=== PATIENT | female | born 1980 | race Caucasian/White ===

== ENCOUNTER 2024-03-01 06:16 | Day surgery (SDC) | payer BC, SELFPAY ==
[2024-03-01] MEDS: LACTATED RINGERS 1000 ML 1,000 ML 100 ML IV (06:20)
[2024-03-01 06:32] VITALS: BMI 36.8
[2024-03-01 06:39] VITALS: BP 146/76; PULSE 83; RESP 16; TEMP 36.6; O2SAT 96
[2024-03-01] MEDS: SODIUM CHLORIDE 0.9 % (FLUSH) 10 ML SYRINGE IVF (06:48)
--- NOTE | 2024-03-01 07:48 | P.GSOP_ITS ---
Operative Note Date of procedure: 03/01/24 Pre-op diagnosis: Recurrent subareolar breast abscess Post-op diagnosis: Same Type of Procedure: Excisional debridement subareolar breast abscess and terminal duct excision. Indications: The patient is a 43-year-old female with a history of subareolar abscess. She was treated for this at and outside facility and first underwent aspiration x3. She was also seen by infectious disease and placed on various antibiotics. She eventually underwent duct excision with primary closure. Pathology showed a benign abscess. After this, she continued to have recurrent infections which were treated with antibiotics. She quit smoking as recommended, however, symptoms persisted. Most recently, in January, she developed an abscess that began to drain spontaneously. This was again treated with antibiotics. She came to see me for a 2nd opinion. After reviewing her record, given that the abscess cavity was closed at the time of the initial surgery, I suggested re- excision, biopsy and culture, removing any terminal ductal tissue, as well as leaving the area open to heal by secondary intention. We discussed risks including recurrence, nipple necrosis, changes to nipple sensation. The patient agreed to proceed with this plan. Procedure Description: After discussing the risks and benefits of the procedure, the patient signed informed consent.? The operative site was marked and the patient was brought to the operating room and placed on the operating table in supine position.? Care was taken to pad the patient's pressure points.?? The patient was then given sedation by anesthesia.?? The operative site was then prepped and draped in the usual sterile fashion.? A time-out was then performed. The patient was noted to have an opening at the 10 o'clock position at the border of the areola. She had a scar noted at the superior aspect of the border of the nipple-areolar complex. There is no significant fluctuance. No erythema. No firm masses. Local anesthetic was injected into the skin and subcutaneous tissue around this. A crescent shaped incision was then created to encompass the draining opening and was connected to the patient's prior incision. Dissection was taken into the subcutaneous fat. It appeared as though the patient had a chronic sinus draining radially toward the nipple. This measured approximately 1 cm in diameter. This was excised using cautery until the nipple was reached. The tissue below the nipple was excised. This was sent to pathology. I then examined the nipple. When pressing posteriorly, milky drainage emerged from the ducts, indicating that there was still some ductal tissue present. I then used a scalpel to carefully excise the terminal ductal tissue from the posterior of the nipple. The dermis was noted to have bleeding tissue. A 3-0 Vicryl stitch was used to then shiva the nipple. Hemostasis in the cavity appeared excellent. The wound was then packed with Vashe-soaked gauze. A sterile dressing was applied. The patient was then woken and transported to the recovery area in stable condition. ? The patient tolerated the procedure well. Findings: Chronic sinus tract from a skin opening to the nipple area. Anesthesia: MAC Surgeon: Leslie oRberts MD Estimated blood loss (mL): 1 Specimen: Other Additional Specimen Information: 1. Culture left breast chronic abscess. 2. Left breast chronic abscess tissue for pathology Condition: stable Disposition: PACU
--- NOTE | 2024-03-01 07:48 | W.PM.H&PU ---
History & Physical Update History & Physical Update H&P Reviewed and patient assessed: No changes noted
[2024-03-01] MEDS: CEFAZOLIN 2 GM INJ IVP (07:50)
[2024-03-01] MEDS: BUPIVACAINE 0.25% 30 ML 18 ML INJECTION (07:53)
[2024-03-01 08:30] VITALS: BP 118/92; PULSE 76; RESP 20; TEMP 36.4; O2SAT 97
--- NOTE | 2024-03-01 08:32 | W.ANESCHARGE ---
Anesthesia Charges Start Date/Time Anesthesia Start Date: 03/01/24 Anesthesia Start Time: 07:34 Stop Date/Time Anesthesia Stop Date: 03/01/24 Anesthesia Stop Time: 08:29
[2024-03-01 08:45] VITALS: BP 122/80; PULSE 74; RESP 20; O2SAT 97
[2024-03-01 09:00] VITALS: BP 121/83; PULSE 72; RESP 20; O2SAT 97
== END 2024-03-01 09:39 | disposition home or self-care (01) ==
PROVIDERS: Visit Provider Surgery
PROC: (CPT 10060; principal; 2024-03-01 07:30)
DX: N61.1 Abscess of the breast and nipple (principal)
CPT/HCPCS: 10060; 19120; 00400; 87070; 87075; 87186; 87205; 88304; J0665; J0690; J1100; J2250; J2405; J2704; J3010; J3490; J7120

== ENCOUNTER 2024-05-21 12:47 | Outpatient (CLI) | payer BC, SELFPAY ==
--- NOTE | 2024-05-21 13:00 | CRLHL7_ITS ---
For Patients: As a result of the Century Cures Act, medical imaging exams and procedure reports are released immediately into your electronic medical record. You may view this report before your referring provider. If you have questions, please contact your health care provider. BILATERAL BREAST MRI WITHOUT AND WITH GADOLINIUM CLINICAL HISTORY: Breast pain. History of mother with breast cancer. History of duct excision LEFT. LEFT breast infection. INDICATION FOR BREAST MRI: Problem-solving. COMPARISON STUDIES: BILATERAL mammogram June 05, 2023, LEFT breast ultrasound January 28, 2024, with LEFT breast diagnostic mammogram. CONTRAST: 15 mL Dotarem. TECHNIQUE: The patient was positioned prone using a breast coil. Multiple imaging sequences were obtained using 1-1.5 mm thick slices with no gap. The image sequences include T2-weighted STIR in the axial plane, T1-weighted nonfat-saturated gradient echo in the axial plane, pre- and post-contrast T1-weighted FLASH 3D with fat suppression in the axial plane, and T1-weighted FLASH high resolution 3D with fat suppression in the sagittal plane. Image post-processing was performed on a [employer] workstation. Complex 3D rendering including maximum intensity projections (MIPS) and volumetric renderings were obtained to optimize visualization of the extent of pathology and relationship to the nipple, skin, and chest wall. This aids in determining feasibility of breast conservation surgery. Subtraction, multiplanar reconstruction, mean curve determination, and angiogenesis mapping were also performed. The study was technically adequate. FINDINGS: Amount of Fibroglandular Tissue: Scattered Breast Background Enhancement: Minimal RIGHT Breast: No suspicious mass or non-mass enhancement LEFT Breast: Linear enhancement subareolar breast extending medially most consistent with post excision changes. The remainder of the LEFT breast is negative. Lymph Nodes: No suspicious lymph nodes. IMPRESSIONS AND RECOMMENDATIONS: Negative for signs of malignancy. Excisional biopsy changes LEFT subareolar breast. Follow-up with annual screening mammography. If continuing breast MRI this is best offset from the mammogram by 6 months. BI-RADS Category 2: Benign Dictated by Tamela Linares MD @ 05/24/2024 11:24:00 AM /sp SP/Dictated by: Tamela Linares MD @ 05/24/2024 11:40:00 AM (Electronically Signed)
== END 2024-05-21 12:48 | disposition home or self-care (01) ==
LOC: MRI 12:48
PROVIDERS: Visit Provider Surgery
DX: N64.4 Mastodynia (principal); Z80.3 Family history of malignant neoplasm of breast
CPT/HCPCS: 77049; A9575

== ENCOUNTER 2024-06-09 11:26 | Outpatient (CLI) | payer BC, SELFPAY | END 2024-06-09 11:27 | disposition home or self-care (01) | LOC: FRMREF 11:27 | PROVIDERS: Visit Provider Surgery | DX: N61.1 Abscess of the breast and nipple (principal) | CPT/HCPCS: 87070; 87186 ==

== ENCOUNTER 2024-06-21 10:29 | Day surgery (SDC) | payer BC, SELFPAY ==
[2024-06-21 10:43] VITALS: BP 148/86; PULSE 95; RESP 16; TEMP 36.6; O2SAT 99
[2024-06-21 10:47] VITALS: BMI 39.5
[2024-06-21] MEDS: SODIUM CHLORIDE 0.9 % (FLUSH) 10 ML SYRINGE IVF (10:50)
[2024-06-21] MEDS: 0.9 % SODIUM CHLORIDE 500 ML 500 ML 100 ML IV (10:50)
--- NOTE | 2024-06-21 12:30 | W.PM.H&PU ---
History & Physical Update History & Physical Update H&P Reviewed and patient assessed: The following changes are noted below H&P Updates: Patient's skin has improved since being started on her antibiotics. She did develop a strange pustule on her right abdomen - this does not appear infected.
--- NOTE | 2024-06-21 12:30 | PM.GSPRC ---
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 Left breast terminal duct excision 2. Excision of left breast nipple fistula Indications: The patient is a 44-year-old female who initially presented to me this fall with recurrent abscesses of her left breast, having previously undergone ductal excision at an outside facility in the past. She was found to have a persistent abscess despite multiple aspirations and duct excision as mentioned and saw me for a 2nd opinion. She underwent subareolar ductal excision and abscess cavity excision and was left to heal by secondary intention. Unfortunately A the patient continued to feel as though she was having recurrent infection and she had a small nonhealing area on the area lower border. MRI did not show any fluid collections, however the following week the patient presented with purulence coming from this opening and cellulitis. On clinical exam, the opening at the area lower border tracked to the nipple and she had multiple ducts noted with whitish debris in them. She was started on antibiotics that had been previously recommended by Infectious Disease to cover staphcoccus lugdonensis (cefdinir), and surgery was scheduled to excise the terminal ducts. She also underwent chlorhexidine scrubs to her skin. She presents today for fistula tract excision and terminal duct excision of the left breast. Procedure Description: After discussing the risks and benefits of the procedure, the patient signed informed consent.? The operative site was marked and the patient was brought to the operating room and placed on the operating table in supine position.? Care was taken to pad the patient's pressure points.?? The patient was then given sedation by anesthesia.?? The operative site was then prepped and draped in the usual sterile fashion.? A time-out was then performed. Local anesthetic was injected into the skin and subcutaneous tissue around the area of concern. The skin opening at 11 o'clock appeared healed. There was white matter noted in 1 of her terminal ducts. A lacrimal probe placed through the skin opening and the tract was noted extending to the nipple. This, when advanced to the nipple pushed debris out of several small ducts. Over the probe, I incised the areola from the nipple to the scar at the area lower border. Dissection was taken down to the fistula. A knife was used to sharply excise the fistula tract from the surrounding tissue, leaving healthy subcutaneous fat. A small wedge of areola was excised over the fistula tract. Using a Garrard blade, I carefully excised the terminal ducts from the inside of the nipple. This tissue was sent for pathology. Culture had been obtained last week so tissue was not sent for a new culture. Hemostasis was achieved with cautery. I then incised along the nipple-areolar border at the site of her previous scar, to free up the areola to bring this tissue back together. Once this was done, I scrubbed the inside of the wound cavity with Hibiclens. I then reapproximated the nipple and areola using 3-0 Vicryl. 4-0 Monocryl was used then the subcuticular fashion to close skin of the areola. The open area was packed with Vashe-soaked packing tape. Bacitracin was applied to the nipple and areola are incision. Gauze was then applied The patient was then woken and transported to the recovery area in stable condition. ? The patient tolerated the procedure well. Findings: Fistula from terminal ducts to skin at 11 o'clock - terminal ducts excised Anesthesia: GETA Surgeon: Leslie Roberts MD Estimated blood loss (mL): 5 Specimen: Other Additional Specimen Information: Left breast terminal ducts and fistula tract Condition: stable Disposition: same day
[2024-06-21] MEDS: CEFAZOLIN 2 GM INJ IVP (12:35)
[2024-06-21] MEDS: BUPIVACAINE 0.25% 30 ML 12.5 ML INJECTION (13:00)
[2024-06-21] MEDS: LIDOCAINE 1% MDV 12.5 ML INJECTION (13:00)
[2024-06-21 13:15] VITALS: BP 133/80; PULSE 76; RESP 16; TEMP 36.4; O2SAT 99
[2024-06-21 13:30] VITALS: BP 148/90; PULSE 69; RESP 16; O2SAT 100
--- NOTE | 2024-06-21 13:30 | P.ANES_ITS ---
Anesthesia Charges Start Date/Time Anesthesia Start Date: 06/21/24 Anesthesia Start Time: 12:16 Stop Date/Time Anesthesia Stop Date: 06/21/24 Anesthesia Stop Time: 13:17 Coding CPT Codes CPT Codes: ANESTH SKIN EXT/PER/ATRUNK - 98078 ([id number]) P3 - PATIENT W/SEVERE SYS DISEASE, QK - OPHTHALMIC MEDICAL TECHNICIAN 2-4 CNCRNT ANES PROC, QX - PRODUCT DEMONSTRATOR SVC W/ MD MED DIRECTION
--- NOTE | 2024-06-21 13:30 | W.ANESCHARGE ---
Anesthesia Charges Start Date/Time Anesthesia Start Date: 06/21/24 Anesthesia Start Time: 12:16 Stop Date/Time Anesthesia Stop Date: 06/21/24 Anesthesia Stop Time: 13:17 Coding CPT Codes CPT Codes: ANESTH SKIN EXT/PER/ATRUNK - 11845 ([id number]) P3 - PATIENT W/SEVERE SYS DISEASE, QK - SWITCHMAN 2-4 CNCRNT ANES PROC, QX - FRUIT THINNER SVC W/ MD MED DIRECTION
[2024-06-21] MEDS: HYDROCODONE-ACETAMIN 5-325 MG 1 TAB PO (13:40)
[2024-06-21 13:45] VITALS: BP 147/84; PULSE 65; RESP 16; O2SAT 100
[2024-06-21 14:00] VITALS: BP 161/83; PULSE 63; RESP 16; O2SAT 100
--- NOTE | 2024-06-21 15:05 | P.ANES_ITS ---
Anesthesia Charges Start Date/Time Anesthesia Start Date: 06/21/24 Anesthesia Start Time: 12:16 Stop Date/Time Anesthesia Stop Date: 06/21/24 Anesthesia Stop Time: 13:17 Coding CPT Codes CPT Codes: ANESTH SKIN EXT/PER/ATRUNK - 64878 ([id number]) QK - PRODUCTION WOOD CRAFTSMAN 2-4 CNCRNT ANES PROC, QX - RELAY TELEGRAPHER SVC W/ MD MED DIRECTION, P3 - PATIENT W/SEVERE SYS DISEASE
--- NOTE | 2024-06-21 15:05 | W.ANESCHARGE ---
Anesthesia Charges Start Date/Time Anesthesia Start Date: 06/21/24 Anesthesia Start Time: 12:16 Stop Date/Time Anesthesia Stop Date: 06/21/24 Anesthesia Stop Time: 13:17 Coding CPT Codes CPT Codes: ANESTH SKIN EXT/PER/ATRUNK - 00212 ([id number]) QK - WAVE SOLDERING MACHINE OPERATOR 2-4 CNCRNT ANES PROC, QX - ELECTROPHYSIOLOGIST SVC W/ MD MED DIRECTION, P3 - PATIENT W/SEVERE SYS DISEASE
== END 2024-06-21 14:14 | disposition home or self-care (01) ==
PROVIDERS: Visit Provider Surgery
PROC: (CPT 19120; principal; 2024-06-21 11:30)
DX: N61.1 Abscess of the breast and nipple (principal); N64.0 Fissure and fistula of nipple
CPT/HCPCS: 19120 ×2; 00400; 88305; J2003; A9270; J0665; J0690; J1100; J2405; J2704; J3490; J7030